=== PATIENT | female | born 1965 | race Caucasian/White ===

== ENCOUNTER 2024-02-23 18:21 | Inpatient (IN) | payer MEDICAID ==
[~2024-02-23] VITALS: Ht 162.6 cm; Wt 55.3 kg
[~2024-02-23 18:21] MED LIST: AMOX1TAB16 MT; LANTUSUD SUBCUT
[2024-02-23] MEDS: SODIUM CHLORIDE 0.9% 1000ML BAG (SEPSIS BOLUS) IV ONE (19:59)
[2024-02-23] MEDS: PIPERACILLIN/TAZO 3.375G/50ML 50 ML IV ONE (20:23)
[2024-02-23 20:43] LABS: DIFFERENTIAL COMMENT 1; HEMATOCRIT. 26.3 % (36.0-48.0); MEAN CORPUSCULAR HEMOGLOBIN 29.6 pg (28.0-32.0); MEAN CORPUSCULAR HGB CONC 34.1 g/dL (31.0-37.0); MEAN CORPUSCULAR VOLUME 86.7 fL (81.0-99.0); MEAN PLATELET VOLUME 7.5 fl (7.4-10.4); PLATELET 200 x1000/uL (130-400); RED BLOOD CELL COUNT 3.03 mill/uL (4.2-5.4); RED CELL DISTRIBUTION WIDTH 14.3 % (11.6-14.6); WHITE BLOOD COUNT 8.8 x1000/uL (4.5-11.0)
[2024-02-23 20:46] LABS: POTASSIUM 3.8 mEq/L (3.5-5.1)
[2024-02-23 20:48] LABS: CALCIUM 7.9 mg/dL (8.7-10.4)
[2024-02-23 20:53] LABS: NUCLEATED RED BLOOD CELLS 4 /100 WBC; PLATELET ESTIMATE NORMAL
[2024-02-23 20:54] LABS: CREATININE 1.7 mg/dL (0.6-1.0)
[2024-02-23 20:56] LABS: LACTIC ACID 4.4 mmol/L (0.4-2.0)
[2024-02-23 20:58] LABS: PROTHROMBIN TIME 11.4 sec (9.6-11.0)
[2024-02-23] MEDS: VANCOMYCIN 1G PREMIX 200 ML IV ONE (21:07)
[2024-02-23] MEDS: SODIUM CHLORIDE 0.9% 1,000 ML IV ONE (22:02)
[2024-02-23] MEDS: NOREPINEPHRINE 8MG/250ML PMX 250 ML IV STA (22:07)
[2024-02-24] VITALS (9 sets, daily range): BP systolic 82–147; BP diastolic 54–81; PULSE 89–110; RESP 14–25; TEMP 37.00296–39.61428; O2SAT 98–100
[2024-02-24 03:54] LABS: CLARITY URINE CLEAR (CLEAR); COLOR URINE YELLOW (YELLOW); GLUCOSE URINE 2+ (NEGATIVE); KETONES URINE NEGATIVE (NEGATIVE); LEUKOCYTE ESTERASE URINE NEGATIVE (NEGATIVE); NITRITE URINE NEGATIVE (NEGATIVE); OCCULT BLOOD URINE 1+ (NEGATIVE); PH URINE 5.5 (4.5-8.0); PROTEIN URINE 1+ (NEGATIVE); SPECIFIC GRAVITY URINE 1.009 (1.005-1.030); UROBILINOGEN URINE 0.2 E.U./dL (0.2-1.0)
[2024-02-24 04:15] LABS: BACTERIA URINE NONE SEEN; RBC URINE NONE SEEN /hpf (0-2); SQUAMOUS EPITHELIAL CELL URINE NONE SEEN /lpf (RARE/1+); WBC URINE NONE SEEN /hpf (0-2)
[2024-02-24] MEDS: SODIUM CHLORIDE 0.9% 1,000 ML IV SCH (12:30)
[2024-02-24] MEDS: BLOOD SUGAR DIAGNOSTIC STRIP TEST SCH (13:07)
[2024-02-24] MEDS: HYDROCODONE/ACETAMINOPHEN 5/325MG TABLET PO PRN (13:28)
[2024-02-24] MEDS: ACETAMINOPHEN 325MG TABLET PO PRN (13:29)
[2024-02-24] MEDS: PIPERACILLIN/TAZO 3.375G/50ML 50 ML IV SCH (13:29)
[2024-02-24] MEDS: INSULIN LISPRO 100 UNITS/ML SUBCUT SCH (13:44)
[2024-02-24] MEDS: ENOXAPARIN 30MG/0.3ML SYR SUBCUT SCH (13:57)
[2024-02-24] MEDS: PANTOPRAZOLE SODIUM 40 MG/VIAL IV SCH (13:57)
[2024-02-24] MEDS: VANCOMYCIN 500MG/100ML IV NR (13:59)
[2024-02-24 14:18] LABS: HEPATITIS B SURFACE ANTIGEN NEGATIVE (Negative)
[2024-02-24 14:39] LABS: HEPATITIS C AB NON REACTIVE (Neg) (Negative)
[2024-02-24] MEDS: MIDODRINE HCL 5MG TABLET PO SCH ×2 (17:41→22:20)
[2024-02-24] MEDS: INSULIN GLARGINE 100 UNITS/ML SUBCUT SCH (22:12)
[2024-02-25] VITALS (12 sets, daily range): BP systolic 86–151; BP diastolic 54–93; PULSE 74–120; RESP 11–20; TEMP 36.33624–37.83636; O2SAT 91–100
[2024-02-25] MEDS ORDERED: PNEUMOCOCCAL 23-VAL P-SAC VAC 0.5ML IM ONE (09:00)
[2024-02-25 10:21] LABS: POTASSIUM 3.5 mEq/L (3.5-5.1)
[2024-02-25 10:22] LABS: CALCIUM 8.1 mg/dL (8.7-10.4)
[2024-02-25 10:27] LABS: CREATININE 1.2 mg/dL (0.6-1.0)
[2024-02-25] MEDS: VANCOMYCIN 1G PREMIX 200 ML IV SCH (18:45)
[2024-02-26] VITALS (12 sets, daily range): BP systolic 101–137; BP diastolic 56–95; PULSE 85–113; RESP 10–19; TEMP 36.33624–37.33632; O2SAT 83–97
[2024-02-26] MEDS: VANCOMYCIN 500MG PREMIX 100 ML IV SCH (08:14)
[2024-02-26 17:48] LABS: BG BASE EXCESS -7.8 mmol/L (-2.0-2.0); BG CARBOXYHEMOGLOBIN 0.5 % (0.5-1.5); BG DEOXYHEMOGLOBIN 15.6 % (0.0-5.0); BG FRACTION INSPIRED OXYGEN 21; BG HCO3 ACT 16.3 mmol/L (22.0-26.0); BG METHEMOGLOBIN 0.3 % (0.0-1.5); BG OXYGEN SATURATION 84.3 % (92.0-98.5); BG OXYHEMOGLOBIN 83.6 % (94.0-97.0); BG PCO2 28.7 mmHg (35.0-45.0); BG PH 7.373 (7.350-7.450); BG PO2 46.1 mmHg (75.0-100.0); BG SAMPLE SITE RIGHT RADIAL; BG TOTAL HEMOGLOBIN 9.6 g/dL (12.0-18.0); BG VENT MODE ROOM AIR
[2024-02-26] MEDS: CEFAZOLIN 2GM/100ML 100 ML IV SCH (18:02)
[2024-02-26] MEDS ORDERED: IOHEXOL-350 100 ML BOTTLE ONE (23:49)
[2024-02-27] VITALS (9 sets, daily range): BP systolic 117–162; BP diastolic 67–99; PULSE 86–103; RESP 11–23; TEMP 36.61404–38.00304; O2SAT 89–95
[2024-02-27 06:46] LABS: CALCIUM 8.4 mg/dL (8.7-10.4); POTASSIUM 3.2 mEq/L (3.5-5.1)
[2024-02-27 07:13] LABS: BASOPHILS % 0.3 % (0.0-2.0); EOSINOPHILS % 0.6 % (0.0-5.0); HEMATOCRIT. 22.8 % (36.0-48.0); HEMOGLOBIN. 7.7 g/dL (12.0-16.0); LYMPHOCYTES % 17.5 % (20.0-50.0); MEAN CORPUSCULAR HEMOGLOBIN 29.4 pg (28.0-32.0); MEAN CORPUSCULAR VOLUME 86.4 fL (81.0-99.0); MEAN PLATELET VOLUME 8.4 fl (7.4-10.4); MONOCYTES % 14.8 % (2.0-8.0); NEUTROPHILS % 66.8 % (40.0-76.0); PLATELET 164 x1000/uL (130-400); RED BLOOD CELL COUNT 2.64 mill/uL (4.2-5.4); RED CELL DISTRIBUTION WIDTH 14.7 % (11.6-14.6); WHITE BLOOD COUNT 8.4 x1000/uL (4.5-11.0)
[2024-02-27 13:08] LABS: BG BASE EXCESS -6.2 mmol/L (-2.0-2.0); BG CARBOXYHEMOGLOBIN 0.3 % (0.5-1.5); BG DEOXYHEMOGLOBIN 2.8 % (0.0-5.0); BG FRACTION INSPIRED OXYGEN 28; BG METHEMOGLOBIN 0.3 % (0.0-1.5); BG OXYGEN SATURATION 97.2 % (92.0-98.5); BG OXYHEMOGLOBIN 96.6 % (94.0-97.0); BG PCO2 26.1 mmHg (35.0-45.0); BG PH 7.432 (7.350-7.450); BG PO2 84.4 mmHg (75.0-100.0); BG SAMPLE SITE RIGHT RADIAL; BG TOTAL HEMOGLOBIN 9.4 g/dL (12.0-18.0); BG VENT MODE NASAL CANNULA
[2024-02-28] VITALS (10 sets, daily range): BP systolic 116–174; BP diastolic 59–98; PULSE 84–100; RESP 12–21; TEMP 36.3918–37.7808; O2SAT 92–100
[2024-02-28] MEDS ORDERED: HALOPERIDOL LACTATE 5MG/ML VIAL IM PRN (04:30)
[2024-02-28] MEDS: HALOPERIDOL LACTATE 5MG/ML VIAL IM PRN (04:40)
[2024-02-28 07:10] LABS: CARBON DIOXIDE 19 mEq/L (21-32); CHLORIDE 104 mEq/L (98-107); POTASSIUM 3.1 mEq/L (3.5-5.1); SODIUM 133 mEq/L (136-145)
[2024-02-28 07:11] LABS: CALCIUM 8.3 mg/dL (8.7-10.4)
[2024-02-28 07:16] LABS: CREATININE 0.9 mg/dL (0.6-1.0); GLUCOSE 174 mg/dL (70-105); UREA NITROGEN BLOOD 10 mg/dL (9-23)
[2024-02-28 07:30] LABS: HEMATOCRIT. 25.2 % (36.0-48.0); HEMOGLOBIN. 8.5 g/dL (12.0-16.0); MEAN CORPUSCULAR HEMOGLOBIN 28.8 pg (28.0-32.0); MEAN CORPUSCULAR HGB CONC 33.8 g/dL (31.0-37.0); MEAN CORPUSCULAR VOLUME 85.2 fL (81.0-99.0); MEAN PLATELET VOLUME 8.1 fl (7.4-10.4); PLATELET 203 x1000/uL (130-400); RED BLOOD CELL COUNT 2.96 mill/uL (4.2-5.4); RED CELL DISTRIBUTION WIDTH 14.6 % (11.6-14.6); WHITE BLOOD COUNT 8.8 x1000/uL (4.5-11.0)
[2024-02-28 08:21] LABS: DIFFERENTIAL COMMENT 1
[2024-02-28] MEDS: POTASSIUM CHLORIDE 20MEQ TABLET SR PO SCH (09:01)
[2024-02-28] MEDS ORDERED: TETRACAINE/BENZOCAINE/BUTAMBEN 20 GM SPRAY MM ONE (09:08)
[2024-02-28] MEDS ORDERED: LIDOCAINE 2% 6ML GLYDO MM ONE (09:09)
[2024-02-28] MEDS ORDERED: FENTANYL CITRATE/PF 50MCG/ML 2ML VIAL ONE (10:04)
[2024-02-28] MEDS ORDERED: MIDAZOLAM HCL 2 MG/2 ML VIAL ONE ×2 (10:04→10:18)
[2024-02-28] MEDS ORDERED: DIPHENHYDRAMINE 50MG/ML VIAL ONE (10:18)
[2024-02-28] MEDS ORDERED: NALOXONE HCL 0.4MG/ML VIAL IV PRN (17:15)
[2024-02-28 17:17] LABS: PLATELET ESTIMATE NORMAL
[2024-02-29] VITALS (13 sets, daily range): BP systolic 120–159; BP diastolic 61–121; PULSE 81–103; RESP 12–25; TEMP 36.44736–38.50308; O2SAT 97–100
[2024-02-29] MEDS ORDERED: LIDOCAINE HCL 1% 10 MG/ML 10ML VIAL ONE (12:35)
[2024-02-29] MEDS: HYDROCODONE/ACETAMINOPHEN 5/325MG TABLET PO PRN (14:39)
[2024-02-29 18:18] LABS: CARBON DIOXIDE 24 mEq/L (21-32); CHLORIDE 105 mEq/L (98-107); POTASSIUM 3.4 mEq/L (3.5-5.1); SODIUM 133 mEq/L (136-145)
[2024-02-29 18:24] LABS: CREATININE 0.9 mg/dL (0.6-1.0); GLUCOSE 205 mg/dL (70-105); UREA NITROGEN BLOOD 8 mg/dL (9-23)
[2024-02-29] MEDS: GABAPENTIN 300MG CAPSULE PO SCH (20:52)
[2024-02-29] MEDS: INSULIN GLARGINE 100 UNITS/ML SUBCUT SCH (21:15)
[2024-03-01] VITALS (11 sets, daily range): BP systolic 113–157; BP diastolic 64–94; PULSE 74–97; RESP 14–26; TEMP 36.33624–37.61412; O2SAT 95–99
[2024-03-01] MEDS: ENOXAPARIN 40MG/0.4ML SYR SUBCUT SCH (08:51)
[2024-03-01] MEDS: INSULIN GLARGINE 100 UNITS/ML SUBCUT SCH (09:48)
[2024-03-01] MEDS ORDERED: GABA-532 PO (09:59)
[2024-03-01] MEDS ORDERED: HYDR-4001 PO (09:59)
[2024-03-01] MEDS ORDERED: MIDO5TAB4 PO (09:59)
[2024-03-01] MEDS ORDERED: LANTUSUD SUBCUT ×2 (09:59)
[2024-03-02] VITALS (9 sets, daily range): BP systolic 110–137; BP diastolic 62–88; PULSE 77–92; RESP 12–20; TEMP 36.6696–37.44744; O2SAT 96–100
[2024-03-02] MEDS: SODIUM CHLORIDE 0.9% 1,000 ML IV NR (23:27)
[2024-03-03] VITALS: BP 149/85; PULSE 85; RESP 13; TEMP 36.72516; O2SAT 99
[2024-03-03 04:00] VITALS: BP 114/61; PULSE 97; RESP 20; TEMP 36.55848
[2024-03-03 08:00] VITALS: BP 151/82; PULSE 78; RESP 14; TEMP 36.00288; O2SAT 99
[2024-03-03] MEDS: DEXTROSE 50% WATER 50ML SYRINGE IV PRN (08:36)
[2024-03-03] MEDS ORDERED: BUPIVACAINE HCL/PF 0.5% (5MG/ML) 10ML ONE (10:54)
[2024-03-03] MEDS ORDERED: LIDOCAINE HCL 1% 10 MG/ML 10ML VIAL ONE (10:54)
[2024-03-03] MEDS ORDERED: POLYMYXIN B SULFATE 500000 UNITS/VIAL ONE (10:54)
[2024-03-03] MEDS ORDERED: FENTANYL CITRATE/PF 50MCG/ML 2ML VIAL ONE (11:09)
[2024-03-03] MEDS ORDERED: ONDANSETRON HCL 4MG/2ML INJ ONE (11:14)
[2024-03-03] MEDS ORDERED: DEXAMETHASONE 4MG/ML 1ML VIAL ONE (11:14)
[2024-03-03] MEDS ORDERED: PROPOFOL 200MG/20ML VIAL IV ONE (11:14)
[2024-03-03] MEDS ORDERED: LIDOCAINE HCL/PF 1% 10 MG/ML 5ML VIAL ONE (11:14)
[2024-03-03] MEDS ORDERED: ONDANSETRON HCL 4MG/2ML INJ IV PRN (13:00)
[2024-03-03] MEDS ORDERED: FENTANYL CITRATE/PF 50MCG/ML 2ML VIAL IV PRN (13:00)
[2024-03-03] MEDS ORDERED: HYDROMORPHONE HCL/PF 1MG/ML INJ IV PRN (13:00)
[2024-03-03 16:00] VITALS: BP 127/95; PULSE 91; RESP 17; TEMP 36.00288
[2024-03-03 20:00] VITALS: BP 148/87; PULSE 95; RESP 14; O2SAT 100
[2024-03-04] VITALS: BP 121/71; PULSE 90; RESP 16; TEMP 37.72524; O2SAT 100
[2024-03-04 02:00] VITALS: BP 117/68; PULSE 80; RESP 17; O2SAT 100
[2024-03-04 04:00] VITALS: BP 117/69; PULSE 76; RESP 18; TEMP 37.11408; O2SAT 100
[2024-03-04 08:00] VITALS: BP 128/89; PULSE 82; RESP 18; TEMP 36.28068; O2SAT 100
[2024-03-04 12:00] VITALS: BP 128/70; PULSE 83; RESP 19; TEMP 36.44736; O2SAT 97
[2024-03-04 16:00] VITALS: BP 136/79; PULSE 82; RESP 18; TEMP 36.55848; O2SAT 99
[2024-03-05 08:00] VITALS: BP 131/74; PULSE 78; RESP 20; TEMP 36.114; O2SAT 98
[2024-03-05] MEDS: CEFTRIAXONE 2GM/50ML 50 ML IV SCH (11:52)
[2024-03-05 16:00] VITALS: BP 147/81; PULSE 77; RESP 20; TEMP 36.44736; O2SAT 100
[2024-03-05 20:00] VITALS: BP 135/82; PULSE 83; RESP 20; TEMP 33.6138; O2SAT 97
[2024-03-06] VITALS: BP 132/82; PULSE 82; RESP 20; TEMP 36.3918; O2SAT 97
[2024-03-06 04:00] VITALS: BP 156/81; PULSE 85; RESP 20; TEMP 36.3918; O2SAT 100
[2024-03-06 08:00] VITALS: BP 149/81; PULSE 84; RESP 18; TEMP 36.72516; O2SAT 100
[2024-03-06 12:00] VITALS: BP 140/80; PULSE 80; RESP 18; TEMP 36.6696; O2SAT 100
[2024-03-06 16:00] VITALS: BP 145/85; PULSE 83; RESP 18; TEMP 36.6696; O2SAT 100
[2024-03-06 20:00] VITALS: BP 75/58; PULSE 80; RESP 17; TEMP 36.78072; O2SAT 99
[2024-03-07] VITALS: BP 128/74; PULSE 87; RESP 18; TEMP 37.39188; O2SAT 100
[2024-03-07 04:00] VITALS: BP 124/68; PULSE 76; RESP 19; TEMP 36.61404; O2SAT 100
[2024-03-07 08:00] VITALS: BP 153/86; PULSE 85; RESP 2; TEMP 36.114
[2024-03-07 12:00] VITALS: BP 160/86; PULSE 81; RESP 18; TEMP 36.61404; O2SAT 100
[2024-03-07] MEDS: CEFEPIME 2GM/100ML 100 ML IV SCH (17:30)
[2024-03-08 08:00] VITALS: BP 158/84; PULSE 87; RESP 19; TEMP 36.78072; O2SAT 100
[2024-03-08 12:00] VITALS: BP 141/78; PULSE 89; RESP 19; TEMP 36.3918; O2SAT 99
[2024-03-08 16:00] VITALS: BP 149/82; PULSE 85; RESP 20; TEMP 36.61404; O2SAT 98
[2024-03-08 20:00] VITALS: BP 114/66; PULSE 85; RESP 16; TEMP 36.3918; O2SAT 98
[2024-03-09] VITALS: BP 138/77; PULSE 82; RESP 18; TEMP 36.6696; O2SAT 100
[2024-03-09 04:00] VITALS: BP 150/83; PULSE 86; RESP 17; TEMP 36.89184; O2SAT 100
[2024-03-09 20:00] VITALS: BP 159/85; PULSE 92; RESP 18; TEMP 37.00296; O2SAT 100
[2024-03-10] VITALS: BP 110/64; PULSE 93; RESP 17; TEMP 36.9474; O2SAT 100
[2024-03-10 04:00] VITALS: BP 125/72; PULSE 82; RESP 17; TEMP 36.78072; O2SAT 100
[2024-03-10 12:20] VITALS: BP 118/62; PULSE 67; RESP 20; TEMP 37.00296; O2SAT 100
[2024-03-10 20:00] VITALS: BP 138/75; PULSE 83; RESP 16; TEMP 36.22512; O2SAT 100
[2024-03-11] VITALS: BP 51/86; PULSE 82; RESP 16; TEMP 36.44736; O2SAT 100
[2024-03-11 04:00] VITALS: BP 128/76; PULSE 81; RESP 16; TEMP 36.3918; O2SAT 100
[2024-03-11 08:00] VITALS: BP 143/80; PULSE 83; RESP 16; TEMP 36.55848; O2SAT 100
[2024-03-11 12:00] VITALS: BP 156/84; PULSE 89; RESP 16; TEMP 36.05844; O2SAT 100
[2024-03-11 16:00] VITALS: BP 150/86; PULSE 86; RESP 17; TEMP 36.6696; O2SAT 99
[2024-03-11 20:00] VITALS: BP 130/68; PULSE 88; RESP 19; TEMP 37.11408; O2SAT 98
[2024-03-11 21:01] LABS: BASOPHILS % 0.9 % (0.0-2.0); EOSINOPHILS % 2.2 % (0.0-5.0); HEMATOCRIT. 23.8 % (36.0-48.0); LYMPHOCYTES % 30.7 % (20.0-50.0); MEAN CORPUSCULAR HEMOGLOBIN 28.4 pg (28.0-32.0); MEAN CORPUSCULAR HGB CONC 33.6 g/dL (31.0-37.0); MEAN CORPUSCULAR VOLUME 84.6 fL (81.0-99.0); MONOCYTES % 9.8 % (2.0-8.0); NEUTROPHILS % 56.4 % (40.0-76.0); PLATELET 441 x1000/uL (130-400); RED BLOOD CELL COUNT 2.81 mill/uL (4.2-5.4); RED CELL DISTRIBUTION WIDTH 14.6 % (11.6-14.6)
[2024-03-11 21:05] LABS: CHLORIDE 100 mEq/L (98-107); POTASSIUM 4.3 mEq/L (3.5-5.1); SODIUM 130 mEq/L (136-145)
[2024-03-11 21:06] LABS: CALCIUM 9.3 mg/dL (8.7-10.4); CARBON DIOXIDE 26 mEq/L (21-32)
[2024-03-11 21:11] LABS: GLUCOSE 200 mg/dL (70-105); UREA NITROGEN BLOOD 19 mg/dL (9-23)
[2024-03-11 21:13] LABS: ALANINE AMINOTRANSFERASE 9 IU/L (10-49); ALBUMIN 3.6 g/dL (3.2-4.8); ASPARTATE AMINOTRANSFERASE 16 IU/L (<34); BILIRUBIN TOTAL 0.2 mg/dL (0.1-1.0); PROTEIN TOTAL 7.9 g/dL (6.0-8.3)
[2024-03-12] VITALS: BP 128/69; PULSE 86; RESP 18; TEMP 37.00296; O2SAT 99
[2024-03-12 04:00] VITALS: BP 138/74; PULSE 81; RESP 17; TEMP 36.72516; O2SAT 98
[2024-03-12 08:00] VITALS: BP 136/79; PULSE 85; RESP 18; TEMP 36.16956; O2SAT 100
[2024-03-12 12:00] VITALS: BP 158/89; PULSE 83; RESP 18; TEMP 36.3918; O2SAT 100
[2024-03-12 15:44] VITALS: BP 166/94; PULSE 83; TEMP 97.5; O2SAT 100
[2024-03-12 16:00] VITALS: BP 166/94; PULSE 83; RESP 18; TEMP 36.28068; O2SAT 100
[2024-03-12] MEDS: CLONIDINE 0.2MG TABLET PO NR (17:12)
== END 2024-03-12 17:37 | disposition home health service (06) | DRG 710 ==
LOC: ER 18:21 → 5EST 20:49 → EDBEDREQ 20:55 → EDBEDREQTM 20:55 → EDBEDREQSVC 21:57 → 6WST 03-04 10:17
PROVIDERS: ADMIT Internal Medicine; ATTEND Internal Medicine
PROC: 02HV33Z Insertion of Infusion Device into Superior Vena Cava, Percutaneous Approach (ICD-10-PCS; 2024-02-29)
PROC: B548ZZA Ultrasonography of Superior Vena Cava, Guidance (ICD-10-PCS; 2024-02-29)
PROC: 0Y6S0Z0 Detachment at Left 2nd Toe, Complete, Open Approach (ICD-10-PCS; 2024-03-03)
PROC: 0HBRXZZ Excision of Toe Nail, External Approach (ICD-10-PCS; principal; 2024-03-05)
DX: A41.01 Sepsis due to Methicillin susceptible Staphylococcus aureus (principal); J96.01 Acute respiratory failure with hypoxia; E11.52 Type 2 diabetes mellitus with diabetic peripheral angiopathy with gangrene; M00.9 Pyogenic arthritis, unspecified; J18.9 Pneumonia, unspecified organism; E87.1 Hypo-osmolality and hyponatremia; E87.20 Acidosis, unspecified; N17.9 Acute kidney failure, unspecified; Z20.822 Contact with and (suspected) exposure to COVID-19; R65.20 Severe sepsis without septic shock; E11.40 Type 2 diabetes mellitus with diabetic neuropathy, unspecified; E11.69 Type 2 diabetes mellitus with other specified complication; L03.116 Cellulitis of left lower limb; D64.9 Anemia, unspecified; I10 Essential (primary) hypertension; M86.9 Osteomyelitis, unspecified; E11.65 Type 2 diabetes mellitus with hyperglycemia; E87.6 Hypokalemia; J45.909 Unspecified asthma, uncomplicated; M79.604 Pain in right leg; G89.29 Other chronic pain; Z79.4 Long term (current) use of insulin; Z91.148 Patient's other noncompliance with medication regimen for other reason
CPT/HCPCS: 36415; 36573; 36600; 71045; 71275; 73120; 73221; 73660; 73721; 80048; 80053; 80202; 81003; 82375; 82805; 82962; 83605; 83735; 84145; 85025; 85379; 86705; 87070; 87075; 87077; 87186; 87340; 87426; 87804; 88304; 88311; 90732; 93005; 93312; 93922; 93923; 93970; 97116; 97162; 97164; 97165; 99291; A6261; C1725; J0690; J0692; J0696; J1100; J1200; J1630; J1650; J1815; J2250; J2405; J2470; J2543; J2704; J3010; J3370; J3490; J7030; Q9967

== ENCOUNTER 2024-03-29 21:29 | Emergency (ER) | payer MEDICAID ==
[~2024-03-29] VITALS: Ht 152.4 cm; Wt 48.8 kg
[~2024-03-29 21:29] MED LIST changes: +GABA-532 PO; +HYDR-4001 PO; +MIDO5TAB4 PO
[2024-03-29 21:37] VITALS: O2SAT 99
[2024-03-30 01:13] LABS: BASOPHILS % 0.6 % (0.0-2.0); EOSINOPHILS % 3.6 % (0.0-5.0); HEMATOCRIT. 23.6 % (36.0-48.0); LYMPHOCYTES % 38.8 % (20.0-50.0); MEAN CORPUSCULAR HEMOGLOBIN 27.5 pg (28.0-32.0); MEAN CORPUSCULAR HGB CONC 33.7 g/dL (31.0-37.0); MEAN CORPUSCULAR VOLUME 81.8 fL (81.0-99.0); MEAN PLATELET VOLUME 6.9 fl (7.4-10.4); MONOCYTES % 6.1 % (2.0-8.0); NEUTROPHILS % 50.9 % (40.0-76.0); PLATELET 364 x1000/uL (130-400); RED BLOOD CELL COUNT 2.89 mill/uL (4.2-5.4); RED CELL DISTRIBUTION WIDTH 14.7 % (11.6-14.6); WHITE BLOOD COUNT 6.4 x1000/uL (4.5-11.0)
[2024-03-30 01:31] LABS: POTASSIUM 3.9 mEq/L (3.5-5.1)
[2024-03-30 01:32] LABS: CALCIUM 8.9 mg/dL (8.7-10.4)
[2024-03-30 01:37] LABS: CREATININE 1.1 mg/dL (0.6-1.0)
[2024-03-30 01:40] LABS: INR 0.9; PROTHROMBIN TIME 10.1 sec (9.6-11.0)
[2024-03-30] MEDS: BACITRACIN ZINC OINT UDPKT TOP ONE ×2 (03:30)
[2024-03-30] MEDS: ACETAMINOPHEN WITH CODEINE 300/30MG TABLET PO NR (03:39)
[2024-03-30] MEDS ORDERED: GABA-532 PO (03:59)
[2024-03-30] MEDS ORDERED: NAPR-681 PO (03:59)
[2024-03-30] MEDS ORDERED: LANTUSUD SUBCUT ×2 (03:59)
[2024-03-30 04:45] VITALS: BP 135/68; PULSE 80; RESP 16; TEMP 36.55848; O2SAT 100
== END 2024-03-30 05:40 | disposition home or self-care (01) ==
LOC: ER 21:29
DX: E11.65 Type 2 diabetes mellitus with hyperglycemia (principal); E11.621 Type 2 diabetes mellitus with foot ulcer; M79.672 Pain in left foot; J45.909 Unspecified asthma, uncomplicated; Z79.899 Other long term (current) drug therapy
CPT/HCPCS: 82962; 99284; 80048; 83880; 83605; 85025; 85610; 87040; 36415; 73610; 73630; 93970; Z7610